=== PATIENT | female | born 1990 | race Caucasian/White ===

== ENCOUNTER 2018-03-19 17:31 | Emergency (ER) | payer MEDICAID ==
[~2018-03-19] VITALS: Ht 160 cm; Wt 102.0 kg
[2018-03-19 17:52] VITALS: BP 137/77
[2018-03-19] MEDS ORDERED: ONDANSETRON ODT 4 MG ONE (18:28)
[2018-03-19] MEDS ORDERED: ONDANSETRON ODT 4 MG PO ONE (18:30)
== END 2018-03-19 19:54 | disposition home or self-care (01) ==
LOC: ED 19:45
DX: R11.0 Nausea (principal); Z32.01 Encounter for pregnancy test, result positive
CPT/HCPCS: 99283; Q0162